=== PATIENT | female | born 1995 | race African-American/Black ===

== ENCOUNTER → 2017-11-11 | Outpatient (CLI) | payer BC ==
[2017-11-11 15:15] LABS: EOS % 2.2 %; EOS ABS # 0.12 K/uL (0-0.5); HEMATOCRIT 36.2 % (37-47); HEMOGLOBIN 11.8 g/dL (12.0-16.0); IG# 0.01 K/uL (0.00-0.02); LYMPH % 26.9 %; MEAN CELL VOLUME 73.3 fL (80-100); MEAN CORPUSCULAR HEMOGLOBIN 23.9 pg (25-34); MEAN CORPUSCULAR HGB CONC 32.6 g/dl (32-36); MEAN PLATELET VOLUME 10.8 fL (7.4-10.4); MONO % 7.5 %; MONO ABS # 0.42 K/uL (0.11-0.59); NEUT % 63.2 %; NEUT ABS # 3.53 K/uL (1.4-6.5); PLATELET COUNT 300 K/uL (130-400); RED CELL DISTRIBUTION WIDTH CV 17.1 % (11.5-14.5); RED CELL DISTRIBUTION WIDTH SD 46.2 fL (36.4-46.3); WHITE BLOOD COUNT 5.58 K/uL (4.8-10.8)
[2017-11-11 15:30] LABS: ALBUMIN 3.7 gm/dl (3.4-5.0); BLOOD UREA NITROGEN 8 mg/dl (7-18); CALCIUM 9.5 mg/dl (8.5-10.1); CARBON DIOXIDE 25 mmol/L (21-32); CREATININE 0.66 mg/dl (0.60-1.20); GLUCOSE 84 mg/dl (70-99); SODIUM 134 mmol/L (136-145)
[2017-11-11 15:40] LABS: ALKALINE PHOSPHATASE 114 U/L (45-117); ALT/SGPT 27 U/L (12-78); AST/SGOT 23 U/L (15-37); CHOLESTEROL 292 mg/dl (0-200); LDL CHOLESTEROL CALCULATED 237 mg/dl; TOTAL PROTEIN 8.2 gm/dl (6.4-8.2)
== END | disposition home or self-care (01) ==
LOC: C.LAB1850 14:08
PROVIDERS: ATTEND Psychiatry & Neurology Psychiatry
DX: F33.2 Major depressive disorder, recurrent severe without psychotic features (principal)

== ENCOUNTER → 2017-11-14 | Outpatient (CLI) | payer BC | END | disposition home or self-care (01) | LOC: C.LAB1850 13:51 | PROVIDERS: ATTEND Psychiatry & Neurology Psychiatry | DX: F33.1 Major depressive disorder, recurrent, moderate (principal) ==